=== PATIENT | male | born 1945 | race Caucasian/White ===

== ENCOUNTER 2019-08-26 07:22 | Emergency (ER) | payer MEDICARE, OTHER ==
[2019-08-26 07:44] VITALS: BP 154/91; PULSE 73; RESP 18; TEMP 98.2
[2019-08-26] MEDS ORDERED: SODIUM CHLORIDE 0.9% 1,000 ML IV STA (08:05)
[2019-08-26] MEDS ORDERED: MORPHINE SULFATE 4 MG/ML SYRINGE IV STA (08:11)
--- NOTE | 2019-08-26 08:14 | ED ---
General Adult HPI - General Chief complaint: Skin/Abscess/Foreign Body Stated complaint: Red/swollen finger Time Seen by Provider: 08/26/19 07:46 Source: patient, RN notes reviewed Mode of arrival: ambulatory Limitations: no limitations - History of Present Illness Initial comments: Patient is a pleasant 74-year-old male presenting to the emergency Department with complaints of right finger pain. He should states many years ago he was diagnosed with gout of his finger. Patient states the past couple of days finger has become more red and painful and swollen. Patient states discomfort increases with touch and movement. No fevers. Symptoms have progressively worsened and her saying to become severe. No other area affected. - Related Data Home Medications Medication Instructions Recorded Confirmed Acarbose [Precose] 100 mg PO TID 05/21/14 07/16/14 Atenolol [Tenormin] 50 mg PO QAM 05/21/14 07/16/14 Benazepril HCl 20 mg PO QAM 05/21/14 07/16/14 Furosemide [Lasix] 40 mg PO QAM 05/21/14 07/16/14 Glimepiride [Amaryl] 8 mg PO QAM 05/21/14 07/16/14 Nitroglycerin Sl Tabs [Nitrostat] 0 mg SUBLINGUAL DIRECTED PRN 05/21/14 07/16/14 Pioglitazone HCl [Actos] 45 mg PO QAM 05/21/14 07/16/14 Pravastatin Sodium [Pravachol] 40 mg PO QAM 05/21/14 07/16/14 Ranitidine HCl [Zantac] 150 mg PO QAM 05/21/14 07/16/14 metFORMIN HCL 1,000 mg PO BID 05/21/14 07/16/14 Previous Rx's Medication Instructions Recorded Hydrocodone/Acetaminophen [[place]line 1 each PO Q4HR PRN #30 tab 07/17/14 7.5-325] Cephalexin [Keflex] 500 mg PO QID #40 cap 08/26/19 Indomethacin [Indocin] 50 mg PO TID PRN #20 capsule 08/26/19 Allergies Allergy/AdvReac Type Severity Reaction Status Date / Time No Known Allergies Allergy Verified 08/26/19 07:42 Review of Systems ROS Statement: Those systems with pertinent positive or pertinent negative responses have been documented in the HPI. ROS Other: All systems not noted in ROS Statement are negative. Constitutional: Denies: fever Eyes: Denies: eye pain ENT: Denies: ear pain Respiratory: Denies: cough Cardiovascular: Denies: chest pain Endocrine: Denies: fatigue Gastrointestinal: Denies: abdominal pain Genitourinary: Denies: dysuria Musculoskeletal: Reports: arthralgia. Denies: back pain Skin: Reports: rash Neurological: Denies: weakness Past Medical History Past Medical History: Chest Pain / Angina, Diabetes Mellitus, Hyperlipidemia, Hypertension, Rheumatoid Arthritis (RA) Additional Past Medical History / Comment(s): KIDNEY STONES, History of Any Multi-Drug Resistant Organisms: None Reported Past Surgical History: Heart Catheterization With Stent Past Anesthesia/Blood Transfusion Reactions: No Reported Reaction, Motion Sickness Additional Past Anesthesia/Blood Transfusion Reaction / Comment(s): NEVER HAD A GENERAL ANESTHESIA Date of Last Stent Placement:: 2000 Past Psychological History: Depression Smoking Status: Former smoker Past Alcohol Use History: None Reported Past Drug Use History: None Reported - Past Family History Mother Family Medical History: Cancer Additional Family Medical History / Comment(s): BREAST General Exam Limitations: no limitations General appearance: alert, in no apparent distress Head exam: Present: normocephalic Eye exam: Present: normal appearance Respiratory exam: Present: normal lung sounds bilaterally Cardiovascular Exam: Present: regular rate, normal rhythm Extremities exam: Present: other (Right middle finger on the dorsum DIP with severe swelling and moderate erythema extending almost to the PIP. There is tenderness. Minimal white/clear drainage. Trace swelling on the volar aspect. Decreased range of motion secondary to swelling.) Neurological exam: Present: alert Psychiatric exam: Present: normal affect, normal mood Skin exam: Present: erythema Course Vital Signs 08/26/19 07:42 Temperature 98.2 F Pulse Rate 73 Respiratory 18 Rate Blood Pressure 154/91 O2 Sat by Pulse 96 Oximetry - Reevaluation(s) Reevaluation #1: 08/26/19 08:[address] Christianson Medical Decision Making - Medical Decision Making Case was discussed in detail with Dr. Christianson who did also review pictures. He recommends outpatient oral antibiotics and follow-up with Dr. Elliott as well as primary care physician. Patient updated. - Radiology Data Radiology results: image reviewed (X-ray of the right third finger shows tophi focus third DIP consistent with history of gout.) Disposition Clinical Impression: Tophaceous gout, Cellulitis Disposition: HOME SELF-CARE Condition: Stable Instructions (If sedation given, give patient instructions): Gout (ED), Cellulitis (ED) Additional Instructions: Please follow-up with primary care physician as well as Dr. Elliott in the next couple days for recheck. Return for fevers, increased redness or redness streaking up the finger and her arm, increased pain or swelling, worsening symptoms or other concerns. Restrictions sent to [facility] pharmacy. Prescriptions: Indomethacin [Indocin] 50 mg PO TID PRN #20 capsule PRN Reason: Pain Cephalexin [Keflex] 500 mg PO QID #40 cap Is patient prescribed a controlled substance at d/c from ED?: No Referrals: Fidencio Merlos MD [Primary Care Provider] - 1-2 days Xiang Mg DO [Medical Doctor] - 1-2 days Time of Disposition: 08:40
[2019-08-26] MEDS ORDERED: KETOROLAC 60 MG/2 ML VIAL IM STA (08:32)
--- NOTE | 2019-08-26 08:35 | XR ---
EXAMINATION TYPE: XR finger RT DATE OF EXAM: 08/26/2019 COMPARISON: NONE HISTORY: Pain and swelling for 3 days. History of gout. TECHNIQUE: 3 views right third finger. FINDINGS: There are soft tissue calcifications centered at the third DIP joint. There is moderate tom rowing at this level. No acute fracture or dislocation is seen. Overall moderate soft tissue swelling noted. IMPRESSION: Tophi focus third DIP joint consistent with patient history of gout.
== END 2019-08-26 08:47 | disposition home or self-care (01) ==
LOC: EC 07:22
DX: L03.011 Cellulitis of right finger (principal); M1A.0411 Idiopathic chronic gout, right hand, with tophus (tophi); E11.9 Type 2 diabetes mellitus without complications; E78.5 Hyperlipidemia, unspecified; I10 Essential (primary) hypertension; Z79.84 Long term (current) use of oral hypoglycemic drugs; Z79.899 Other long term (current) drug therapy; Z87.891 Personal history of nicotine dependence; Z95.5 Presence of coronary angioplasty implant and graft
CPT/HCPCS: 87070; 87205; 73140; 99283; 96372; J1885

== ENCOUNTER 2019-09-06 13:05 | Day surgery (SDC) | payer MEDICARE, OTHER ==
[2019-09-05 08:21] VITALS: BMI 37.5
[~2019-09-06 13:05] MED LIST: DEXAMETHASONE SOD PHOSPHATE 10 MG/ML 1 ML VIAL IV ONE; HYDROmorphone 0.5 MG/0.5 ML SYRINGE IVP PRN; LACTATED RINGERS 1,000 ML IV SCH; MIDAZOLAM 2 MG/2 ML VIAL IV PRN; ONDANSETRON 4 MG/2 ML VIAL IVP ONE
[2019-09-06 14:39] VITALS: TEMP 97.6
[2019-09-06 14:39] LABS: Glucose,Whole Blood 142 mg/dL (75-99)
[2019-09-06] MEDS ORDERED: PROPOFOL 10 MG/ML 20 ML VIAL IV ONE (15:58)
[2019-09-06] MEDS ORDERED: fentaNYL (PF) 50 MCG/ML 2 ML AMP ONE (15:58)
[2019-09-06] MEDS ORDERED: LIDOCAINE 1% INJ 10MG/ML (20 ML MDV) ONE (15:58)
[2019-09-06] MEDS ORDERED: KETAMINE 10 MG/ML 20 ML VIAL ONE (15:58)
[2019-09-06] MEDS ORDERED: GLYCOPYRROLATE 0.2 MG/ML 2 ML VIAL ONE (15:58)
[2019-09-06] MEDS ORDERED: MIDAZOLAM 2 MG/2 ML VIAL ONE (15:58)
[2019-09-06] MEDS ORDERED: LIDOCAINE 1% INJ 10MG/ML (20 ML MDV) SQ ONE (16:19)
[2019-09-06] MEDS ORDERED: ROPIVACAINE 5 MG/ML 30 ML VIAL MISCELLANE ONE (16:19)
[2019-09-06 17:57] VITALS: BP 148/69; PULSE 65; RESP 16
--- NOTE | 2019-09-11 15:11 | P.OP ---
Date of Procedure: 09/06/19 Preoperative Diagnosis: 1. 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 High-grade partial attritional rupture (~80%) of the right middle finger terminal extensor tendon (Zone 1 extensor tendon rupture) Procedure(s) Performed: 1. Incision and drainage of right middle finger with excision of gouty tophus and primary wound closure 2. Irrigation and debridement of right middle finger DIP joint 3. Debridement of right middle finger extensor tendon rupture Anesthesia: MAC, local Surgeon: Xiang Mg Estimated Blood Loss (ml): 10 Pathology: other (Culture swab of DIP joint) Condition: stable Disposition: PACU Indications for Procedure: The patient is a pleasant 74-year-old male who presented with acute tophaceous gout of his right middle finger with draining open wounds. Initial treatment with oral antibiotics, NSAIDs and local wound care did not yield substantial improvement. Treatment options (and associated risks and benefits) were discussed in the office. Surgical treatment was recommended. In preop, the patient denied any additional questions or concerns and wished to proceed with surgery. Consent forms were signed. The operative site was confirmed and marked. Description of Procedure: The patient was positioned supine with the operative limb on a hand table. Anesthesia was administered uneventfully. With aseptic technique, a digital block was performed using local anesthetic without epinephrine. The right upper extremity was prepped and draped in standard, sterile fashion. A time-out was performed, confirming patient identifiers, the operative side, the site and the procedure to be performed: all team members expressed agreement. A strip of the Esmarch was cut and clamped at the base of the finger as a digital tourniquet. A longitudinal incision was made over the dorsal aspect of the DIP joint, incorporating one of the open wounds. Abundant thick, tophaceous material was immediately encountered and was manually expressed from the wound. The subcutaneous tissues were bluntly spread and the wound was explored. Extensive tophaceous deposits were identified throughout the dorsal soft tissues, along the extensor tendon and down the lateral recesses. The terminal extensor tendon was found to be nearly completely disrupted. There was substantial loss of the central substance of the tendon, with only small portions of the peripheral insertions still intact. A combination of sharp and mechanical debridement was employed to resect the tophaceous material, utilizing scalpels, curettes and rongeurs. There were numerous pockets scattered throughout the dorsum of the finger. The ulcerated open wounds were carefully debrided. The skin was quite friable. The extensor tendon was cleaned of gouty exudate. The frayed edges were sharply revised and the remaining tendon was mechanically debrided. There was insufficient tissue to perform a primary repair. Though small, the remaining peripheral attachments seemed fairly strong. The dorsal capsule was absent. The DIP joint was explored: both articular surfaces were nearly completely devoid of cartilage. A culture swab of the joint space was obtained. Additional tophaceous tissue was removed from the norma int. Tophi were also found impacted into the dorsal surface of the proximal phalanx head/neck and were removed with curettes and a dental pick. An 18-gauge angiocatheter was used to copiously irrigate the joint with normal saline. The rest of the dorsal wound was thoroughly irrigated with a bulb syringe. The digital tourniquet was released after 41 minutes. Hemostasis was obtained with manual pressure. The incision was loosely closed with interrupted 5-0 Prolene sutures. The small, peripheral open wounds were also closed primarily with simple sutures. A soft, sterile dressing of Adaptic, 4 x 4's, Daisy and Cobstephanie was applied. All sponge, needle and instrument counts were correct at the end of the case. The patient tolerated the procedure well and was taken to recovery in stable condition.
== END 2019-09-06 18:10 | disposition home or self-care (01) ==
LOC: OR 13:05
PROVIDERS: ATTEND Orthopaedic Surgery
DX: M1A.0411 Idiopathic chronic gout, right hand, with tophus (tophi) (principal); M11.841 Other specified crystal arthropathies, right hand; M66.241 Spontaneous rupture of extensor tendons, right hand; M19.041 Primary osteoarthritis, right hand; S61.202A Unspecified open wound of right middle finger without damage to nail, initial encounter; I11.9 Hypertensive heart disease without heart failure; E78.5 Hyperlipidemia, unspecified; E03.9 Hypothyroidism, unspecified; E11.9 Type 2 diabetes mellitus without complications; I25.10 Atherosclerotic heart disease of native coronary artery without angina pectoris; K21.9 Gastro-esophageal reflux disease without esophagitis; Z79.899 Other long term (current) drug therapy; Z79.84 Long term (current) use of oral hypoglycemic drugs; Z97.3 Presence of spectacles and contact lenses; Z87.2 Personal history of diseases of the skin and subcutaneous tissue; Z98.890 Other specified postprocedural states; Z87.442 Personal history of urinary calculi; Z87.891 Personal history of nicotine dependence; Z97.2 Presence of dental prosthetic device (complete) (partial); Z95.5 Presence of coronary angioplasty implant and graft; X58.XXXA Exposure to other specified factors, initial encounter
CPT/HCPCS: 26080; 87070; 87205; 87075; 87102; J2250; J1100; J0690; J2405; J2001; J3010; J2795; J2704

== ENCOUNTER → 2020-07-31 | Outpatient (CLI) | payer MEDICARE, OTHER ==
--- NOTE | 2020-07-31 10:31 | FL ---
EXAMINATION TYPE: FL barium swallow DATE OF EXAM: 07/31/2020 CLINICAL HISTORY: Dysphagia. Pills getting stuck in upper esophagus. TECHNIQUE: A double contrast esophagram is performed utilizing air and barium. A total of 0.23 janae chloe of fluoroscopic time was utilized during procedure and 60 images obtained COMPARISON: CT abdomen September 22, 2015 FINDINGS: The esophagus shows occasional abnormal secondary tertiary contraction but fairly satisfact ory emptying into the stomach. No evidence of fixed hiatal hernia or stricture noted. No abnormal ou tpouching or diverticulum. No significant gastroesophageal reflux was seen during real time performan ce of this study. IMPRESSION: No significant abnormality is seen to account for patient's symptoms.
== END | disposition home or self-care (01) ==
LOC: RADUSWWP 09:30
PROVIDERS: ATTEND Family Medicine
DX: R13.10 Dysphagia, unspecified (principal)
CPT/HCPCS: 74220

== ENCOUNTER 2020-09-24 07:05 | Day surgery (SDC) | payer MEDICARE, OTHER ==
[2020-09-22 15:19] VITALS: BMI 37.2
[~2020-09-24 07:05] MED LIST changes: -DEXAMETHASONE SOD PHOSPHATE 10 MG/ML 1 ML VIAL IV ONE; -HYDROmorphone 0.5 MG/0.5 ML SYRINGE IVP PRN; +LIDOCAINE 1% (10MG/ML) FOR IV START INTRADERMA PRN; -MIDAZOLAM 2 MG/2 ML VIAL IV PRN; -ONDANSETRON 4 MG/2 ML VIAL IVP ONE
[2020-09-24 07:42] VITALS: RESP 16; TEMP 98
[2020-09-24 08:01] LABS: Glucose,Whole Blood 209 mg/dL (75-99)
[2020-09-24] MEDS ORDERED: PROPOFOL 10 MG/ML 20 ML VIAL IV ONE (08:21)
[2020-09-24] MEDS ORDERED: LIDOCAINE 1% INJ 10MG/ML (20 ML MDV) ONE (08:21)
--- NOTE | 2020-09-24 08:41 | P.PCN ---
Date of Procedure: 09/24/20 Description of Procedure: BRIEF HISTORY: Patient is a 75-year-old male presenting for outpatient EGD for evaluation of dysphagia. Patient has two-year history of esophageal dysphagia and choking. He reports that the symptoms have been worse. Previously on ranitidine for GERD currently is only taking as needed [id number] medication. PROCEDURE PERFORMED: Esophagogastroduodenoscopy with biopsy. PREOPERATIVE DIAGNOSIS: Dysphagia, esophageal dysphagia, history of reflux. ESTIMATED BLOOD LOSS: Minimal. IV sedation per anesthesia. PROCEDURE: After informed consent was obtained, the patient was brought into the endoscopy unit. IV sedation was administered by Anesthesia under continuous monitoring. Initially the Olympus GIF-190 video endoscope was inserted into the mouth. Esophagus intubated without any difficulty. It was gradually advanced into the stomach and duodenum and carefully examined. The bulb and the second part of the duodenum appeared normal, except for some mild punctate erythema suggestive of mild duodenitis with biopsies taken. The scope at this time was withdrawn to the stomach, adequately insufflated with air, and upon careful examination, mucosa of the antrum, body, cardia and the fundus appeared normal, except for some mild scattered erythema in the antrum and body suggestive of mild gastritis with biopsies of the antrum and body taken. The scope was then withdrawn into the esophagus. The GE junction was located at 41 cm from the incisors and biopsied. The esophagus appeared normal, with no esophageal biopsies taken to rule out EOE. There were no erosions or ulcerations seen and the patient tolerated the procedure well. IMPRESSION: 1. Mild gastritis. 2. Mild duodenitis. 3. Biopsies of the duodenum, antrum and body, GE junction and mid esophagus. RECOMMENDATIONS: The findings of this examination were discussed with the patient . Okay to resume diet. Okay to resume medication. Await pathology from biopsies. Patient can start a trial of OTC Prilosec for a few weeks to see if this improves dysphagia given history of reflux, otherwise no gross abnormalities of the esophagus noted.
[2020-09-24 08:55] LABS: Glucose,Whole Blood 178 mg/dL (75-99)
[2020-09-24 09:10] VITALS: BP 156/81; PULSE 63
== END 2020-09-24 09:20 | disposition home or self-care (01) ==
LOC: ORWHC2ENDO 07:05
PROVIDERS: ATTEND Internal Medicine
DX: K29.50 Unspecified chronic gastritis without bleeding (principal); K29.80 Duodenitis without bleeding; K21.00 Gastro-esophageal reflux disease with esophagitis, without bleeding; E11.9 Type 2 diabetes mellitus without complications; I25.10 Atherosclerotic heart disease of native coronary artery without angina pectoris; I10 Essential (primary) hypertension; E78.5 Hyperlipidemia, unspecified; J44.9 Chronic obstructive pulmonary disease, unspecified; M06.9 Rheumatoid arthritis, unspecified; F32.9 Major depressive disorder, single episode, unspecified; Z79.899 Other long term (current) drug therapy; Z87.891 Personal history of nicotine dependence; Z79.84 Long term (current) use of oral hypoglycemic drugs; Z95.5 Presence of coronary angioplasty implant and graft; Z97.2 Presence of dental prosthetic device (complete) (partial); Z98.890 Other specified postprocedural states; Z87.442 Personal history of urinary calculi; Z87.898 Personal history of other specified conditions
CPT/HCPCS: 88305; 88312; 43239; J2001; J2704

== ENCOUNTER → 2022-05-16 | Outpatient (CLI) | payer MEDICARE ==
[2022-05-16 12:27] LABS: Magnesium 1.9 mg/dL (1.5-2.4)
[2022-05-16 12:31] LABS: African American GFR (CKD) 53.8 (60.0-200.0); Anion Gap 12.2 mmol/L (10.00-18.00); BUN/Creat Ratio 8.08 Ratio (12.00-20.00); Blood Urea Nitrogen 11.8 mg/dL (9.0-27.0); Calcium 9.2 mg/dL (8.7-10.3); Carbon Dioxide 26.8 mmol/L (20.0-27.5); Non-African American GFR(CKD) 46.4 (60.0-200.0); Potassium 4.5 mmol/L (3.5-5.5)
== END | disposition home or self-care (01) ==
LOC: LABWHC1 07:50
PROVIDERS: ATTEND Internal Medicine
DX: Z00.00 Encounter for general adult medical examination without abnormal findings (principal); I25.10 Atherosclerotic heart disease of native coronary artery without angina pectoris; E78.2 Mixed hyperlipidemia
CPT/HCPCS: 36415; 80048; 83735

== ENCOUNTER 2022-08-12 09:03 | Day surgery (SDC) | payer MEDICARE ==
[2022-08-11 08:28] VITALS: BMI 32.7
[2022-08-12 09:44] VITALS: TEMP 97.1
[2022-08-12 09:49] LABS: Glucose,Whole Blood 189 mg/dL (70-110)
[2022-08-12] MEDS: LACTATED RINGERS 1,000 ML IV SCH ×2 (09:49→10:13)
[2022-08-12] MEDS ORDERED: LIDOCAINE 2% INJ 20 MG/ML (2 ML VIAL) ONE (10:14)
[2022-08-12] MEDS ORDERED: PROPOFOL 10 MG/ML 20 ML VIAL IV ONE (10:14)
--- NOTE | 2022-08-12 10:37 | P.PCN ---
Date of Procedure: 08/12/22 Procedure(s) Performed: BRIEF HISTORY: Patient is a 77-year-old pleasant white male scheduled for an elective colonoscopy as a part of evaluation of chronic diarrhea of 2 months duration. PROCEDURE PERFORMED: Colonoscopywith biopsy. PREOPERATIVE DIAGNOSIS: chronic diarrhea of 2 months duration. IV sedation per Anesthesia. PROCEDURE: After informed consent was obtained, the patient, was brought into the endoscopy unit. IV sedation was administered by Anesthesia under continuous monitoring. Digital rectal examination was normal. Initially the Olympus CF-160 flexible video colonoscope was then inserted in the rectum, gradually advanced into the cecum without any difficulty. Careful examination was performed as the scope was gradually being withdrawn. Ileocecal valve and the appendiceal orifice were visualized and appeared normal. Prep was excellent. Mucosa of the cecum, ascending colon 5 years.appeared normal. In the transverse colon there was a 3 mm polyp that was removed by cold biopsy. In the sigmoid colon there was another 3 mm polyp that was removed by cold biopsy. Rest of the, transverse colon, descending colon, sigmoid colon, and rectum appeared normal. random biopsies were done from the ascending and descending colon to rule out microscopic colitis.use scattered diverticulosis seen. Retroflexion was performed in the rectum and no lesions were seen. The patient tolerated the procedure well. IMPRESSION: 3 mm transverse colon polyp status post cold biopsy 3 mm sigmoid colon polyp status post cold biopsy Diffuse diverticulosis throughout the entire colon RECOMMENDATIONS: Findings of this examination were discussed with the patient as well as his family. He was advised to follow with the biopsy results. If the biopsy reveals adenoma he can have a repeat colonoscopy in 3 years.
[2022-08-12 11:07] VITALS: BP 136/77; PULSE 67; RESP 15
== END 2022-08-12 11:41 | disposition home or self-care (01) ==
LOC: ORWHC2ENDO 09:03
PROVIDERS: ATTEND Internal Medicine Gastroenterology
DX: K52.9 Noninfective gastroenteritis and colitis, unspecified (principal); D12.3 Benign neoplasm of transverse colon; D12.4 Benign neoplasm of descending colon; D12.5 Benign neoplasm of sigmoid colon
CPT/HCPCS: 88305; 45380; J2704; J2001

== ENCOUNTER 2025-02-04 18:46 | Observation (INO) | payer MEDICARE ==
[2025-02-04 19:13] LABS: Basophils # (A) 0.06 10*3/uL (0.00-0.10); Basophils % (A) 0.6 %; Eosinophils # (A) 0.07 10*3/uL (0.04-0.35); Eosinophils % (A) 0.7 %; HCT 35.1 % (39.6-50.0); HGB 12.3 g/dL (13.0-17.0); Lymphocytes # (A) 2.82 10*3/uL (0.90-5.00); Lymphocytes % (A) 26.2 %; MCH 30.9 pg (27.0-32.0); MCV 88.2 fL (80.0-97.0); Mean Platelet Volume 11.3 fL (9.5-12.2); Monocytes # (A) 1.44 10*3/uL (0.20-1.00); Monocytes % (A) 13.4 %; Neutrophils # (A) 5.97 10*3/uL (1.80-7.70); Neutrophils % (A) 55.5 %; Platelet Count 100 10*3/uL (140-440); RBC 3.98 10*6/uL (4.40-5.60); RDW 13.4 % (11.5-14.5); WBC 10.75 10*3/uL (4.50-10.00)
[2025-02-04 19:20] LABS: Partial Thromboplastin Time 22.9 sec (22.0-30.0); Prothrombin Time 11.1 sec (10.0-12.5)
[2025-02-04 19:24] LABS: ALT 16 U/L (4-49); AST 19 U/L (17-59); African American GFR (CKD) 51 (>60 ml/min/1.73 sqM); Albumin 4.6 g/dL (3.5-5.0); Alkaline Phosphatase 51 U/L (38-126); Anion Gap 14 mmol/L; Blood Urea Nitrogen 30 mg/dL (9-20); Calcium 9.8 mg/dL (8.4-10.2); Carbon Dioxide 23 mmol/L (22-30); Chloride 95 mmol/L (98-107); Glucose 375 mg/dL (74-99); Non-African American GFR(CKD) 44 (>60 ml/min/1.73 sqM); Potassium 4.1 mmol/L (3.5-5.1); Sodium 132 mmol/L (137-145); Total Bilirubin 1.1 mg/dL (0.2-1.3); Total Protein 7.7 g/dL (6.3-8.2)
--- NOTE | 2025-02-04 19:24 | ED ---
General Adult HPI - General Chief complaint: Syncope Stated complaint: syncope Time Seen by Provider: 02/04/25 18:48 Source: patient, EMS, RN notes reviewed, old records reviewed Mode of arrival: EMS Limitations: no limitations - History of Present Illness Initial comments: 79-year-old male presents from home after likely syncopal episode. Patient was at the dinner table he became unresponsive and slumped over. Family member lowered him to the ground. There was no injury or fall. Patient regained consciousness. At the time my evaluation he has no specific complaints other than some mild nausea. Patient was transported by paramedics, given 500 cc of normal saline. He does have a history of CAD and CHF and takes 80 mg of Lasix daily. No recent medication changes. No fever. No chest pain. No abdominal pain nausea vomiting or diarrhea. - Related Data Home Medications Medication Instructions Recorded Confirmed Benazepril HCl 20 mg PO DAILY 05/21/14 10/12/22 Furosemide [Lasix] 80 mg PO DAILY 05/21/14 10/12/22 Glimepiride [Amaryl] 4 mg PO BID 05/21/14 10/12/22 Nitroglycerin Sl Tabs [Nitrostat] 0.4 mg SUBLINGUAL Q5M PRN 05/21/14 10/12/22 Pravastatin Sodium [Pravachol] 40 mg PO DAILY 05/21/14 10/12/22 atenoloL [Tenormin] 50 mg PO DAILY 05/21/14 10/12/22 Acarbose [Precose] 100 mg PO TID 09/22/20 10/12/22 Aspirin EC [Ecotrin] 325 mg PO DAILY 05/07/22 10/12/22 Cholecalciferol [Vitamin D3 (25 25 mcg PO DAILY 05/07/22 10/12/22 Mcg = 1000 Iu)] amLODIPine [Norvasc] 5 mg PO DAILY 05/07/22 10/12/22 Previous Rx's Medication Instructions Recorded Magnesium Oxide [Mag-Ox] 400 mg PO BID 30 Days #60 tab 05/12/22 Allergies Allergy/AdvReac Type Severity Reaction Status Date / Time No Known Allergies Allergy Verified 10/12/22 09:07 Review of Systems ROS Statement: Those systems with pertinent positive or pertinent negative responses have been documented in the HPI. ROS Other: All systems not noted in ROS Statement are negative. Past Medical History Past Medical History: Chest Pain / Angina, Diabetes Mellitus, GERD/Reflux, Hyperlipidemia, Hypertension, Rheumatoid Arthritis (RA) Additional Past Medical History / Comment(s): KIDNEY STONES, gout, RECENT INPT STAY 04/2021 FOR COLITIS History of Any Multi-Drug Resistant Organisms: None Reported Past Surgical History: Heart Catheterization With Stent Additional Past Surgical History / Comment(s): tumor removed from stomach as . KIDNEY STONE REMOVED Past Anesthesia/Blood Transfusion Reactions: Motion Sickness Additional Past Anesthesia/Blood Transfusion Reaction / Comment(s): NEVER HAD A GENERAL ANESTHESIA Date of Last Stent Placement:: 2000 Past Psychological History: No Psychological Hx Reported Smoking Status: Former smoker Past Alcohol Use History: None Reported Past Drug Use History: None Reported - Past Family History Mother Family Medical History: Cancer Additional Family Medical History / Comment(s): BREAST General Exam Limitations: no limitations General appearance: alert, in no apparent distress Head exam: Present: atraumatic, normocephalic Eye exam: Present: normal appearance, PERRL ENT exam: Present: normal exam Neck exam: Present: normal inspection. Absent: tenderness, meningismus Respiratory exam: Present: normal lung sounds bilaterally. Absent: respiratory distress, wheezes Cardiovascular Exam: Present: regular rate, normal rhythm GI/Abdominal exam: Present: soft. Absent: distended, tenderness Extremities exam: Present: pedal edema (trace) Neurological exam: Present: alert, oriented X3, CN II-XII intact. Absent: motor sensory deficit Psychiatric exam: Present: normal affect, normal mood Skin exam: Present: warm, dry, intact Course Vital Signs 02/04/25 18:51 Temperature 98.0 F Pulse Rate 62 Respiratory 16 Rate Blood Pressure 142/95 O2 Sat by Pulse 95 Oximetry Medical Decision Making - Medical Decision Making Was pt. sent in by a medical professional or institution (, PA, FINANCIAL SALES MANAGER, urgent care, hospital, or senior care...) When possible be specific @ -No Did you speak to anyone other than the patient for history (EMS, parent, family, police, friend...)? What history was obtained from this source @ -No Did you review nursing and triage notes (agree or disagree)? Why? @ -I reviewed and agree with nursing and triage notes Were old charts reviewed (outside hosp., previous admission, EMS record, old EKG, old radiological studies, urgent care reports/EKG's, senior care records)? Report findings @ -No old charts were reviewed Differential Syncope: Valvular disease, hypertrophic cardiomyopathy, pulmonary embolism, tamponade, tachycardia, bradycardia, OK, hypovolemia, hemorrhage, dissection, anemia, intracranial hemorrhage, seizure, hypoglycemia, carbon monoxide poisoning, this is not meant to be an all-inclusive list. EKG interpreted by me (3pts min.). @EKG: Bradycardia wide-complex history of left bundle on previous EKG, rate of 58, MO interval 188, QRS duration 169, QTc [address] segment elevation. X-rays interpreted by me (1pt min.). @Chest x-ray negative for pneumothorax, no consolidative pneumonia CT interpreted by me (1pt min.). @ -None done U/S interpreted by me (1pt. min.). @ -None done What testing was considered but not performed or refused? (CT, X-rays, U/S, labs)? Why? @ -None What meds were considered but not given or refused? Why? @ -None Did you discuss the management of the patient with other professionals (professionals i.e. , PA, FINANCIAL SALES MANAGER, lab, RT, psych nurse, psych social worker, mobile phone salesperson, teacher, loan officer, mental health case manager)? Give summary @ -Dr. Merlos has been paged for admission Was smoking cessation discussed for >3mins.? @ -No Was critical care preformed (if so, how long)? @ -No Were there social determinants of health that impacted care today? How? (Homelessness, low income, unemployed, alcoholism, drug addiction, t ransportation, low edu. Level, literacy, decrease access to med. care, fdc, rehab)? @ -No Was there de-escalation of care discussed even if they declined (Discuss DNR or withdrawal of care, Hospice)? DNR status @ -No What co-morbidities impacted this encounter? (DM, HTN, Smoking, COPD, CAD, Cance r, CVA, ARF, Chemo, Hep., AIDS, mental health diagnosis, sleep apnea, morbid obesity)? @ -[Coronary artery disease Was patient admitted / discharged? Hospital course, mention meds given and route, prescriptions, significant lab abnormalities, going to OR and other pertinent info. @ -79-year-old male with syncopal episode at home. Patient has a stable blood pressure upon arrival. He does appear to be in a sinus bradycardia with left bundle branch block, history of left bundle branch block. No chest pain. Patient has mild leukocytosis, stable hemoglobin, chronic stable kidney disease. Negative troponin. Patient will be observed on telemetry, echo has been ordered for syncopal episode. Cardiology will be placed on consult for evaluation. Undiagnosed new problem with uncertain prognosis? @ -[No Drug Therapy requiring intensive monitoring for toxicity (Heparin, Nitro, Insulin, Cardizem)? @ -No Were any procedures done? @ -No Diagnosis/symptom? @Syncope Acute, or Chronic, or Acute on Chronic? @Acute Uncomplicated (without systemic symptoms) or Complicated (systemic symptoms)? @ -Default Side effects of treatment? @ -No Exacerbation, Progression, or Severe Exacerbation? @ -No Poses a threat to life or bodily function? How? (Chest pain, USA, OK, pneumonia, PE, COPD, DKA, ARF, appy, cholecystitis, CVA, Diverticulitis, Homicidal, Suicidal, threat to staff... and all critical care pts) @ -Yes, arrhythmia, ACS, hypovolemia - Lab Data Result diagrams: 02/04/25 19:00 02/04/25 19:00 Lab Results 02/04/25 02/04/25 02/04/25 Range/Units 19:00 19:00 19:00 WBC 10.75 H (4.50-10.00) 10*3/uL RBC 3.98 L (4.40-5.60) 10*6/uL Hgb 12.3 L (13.0-17.0) g/dL Hct 35.1 L (39.6-50.0) % MCV 88.2 (80.0-97.0) fL MCH 30.9 (27.0-32.0) pg MCHC 35.0 (32.0-37.0) g/dL Plt Count 100 L (140-440) 10*3/uL MPV 11.3 (9.5-12.2) fL Immature Gran % (Auto) 3.6 % Neutrophils % 55.5 % Lymphocytes % 26.2 % Monocytes % 13.4 % Eosinophils % 0.7 % Basophils % 0.6 % Immature Gran # 0.39 H (0.00-0.04) 10*3/uL Neutrophils # 5.97 (1.80-7.70) 10*3/uL Lymphocytes # 2.82 (0.90-5.00) 10*3/uL Monocytes # 1.44 H (0.20-1.00) 10*3/uL Eosinophils # 0.07 (0.04-0.35) 10*3/uL Basophils # 0.06 (0.00-0.10) 10*3/uL Immature Plt Fraction 8.0 H (1.1-6.1) % PT 11.1 (10.0-12.5) sec INR 1.0 (<1.2) APTT 22.9 (22.0-30.0) sec Sodium 132 L (137-145) mmol/L Potassium 4.1 (3.5-5.1) mmol/L Chloride 95 L (98-107) mmol/L Carbon Dioxide 23 (22-30) mmol/L Anion Gap 14 mmol/L BUN 30 H (9-20) mg/dL Creatinine 1.51 H (0.66-1.25) mg/dL Est GFR (CKD-EPI)AfAm 51 (>60 ml/min/1.73 sqM) Est GFR (CKD-EPI)NonAf 44 (>60 ml/min/1.73 sqM) Glucose 375 H (74-99) mg/dL Calcium 9.8 (8.4-10.2) mg/dL Total Bilirubin 1.1 (0.2-1.3) mg/dL AST 19 (17-59) U/L ALT 16 (4-49) U/L Alkaline Phosphatase 51 (38-126) U/L Troponin I (0.000-0.034) ng/mL Total Protein 7.7 (6.3-8.2) g/dL Albumin 4.6 (3.5-5.0) g/dL 02/04/25 Range/Units 19:00 WBC (4.50-10.00) 10*3/uL RBC (4.40-5.60) 10*6/uL Hgb (13.0-17.0) g/dL Hct (39.6-50.0) % MCV (80.0-97.0) fL MCH (27.0-32.0) pg MCHC (32.0-37.0) g/dL Plt Count (140-440) 10*3/uL MPV (9.5-12.2) fL Immature Gran % (Auto) % Neutrophils % % Lymphocytes % % Monocytes % % Eosinophils % % Basophils % % Immature Gran # (0.00-0.04) 10*3/uL Neutrophils # (1.80-7.70) 10*3/uL Lymphocytes # (0.90-5.00) 10*3/uL Monocytes # (0.20-1.00) 10*3/uL Eosinophils # (0.04-0.35) 10*3/uL Basophils # (0.00-0.10) 10*3/uL Immature Plt Fraction (1.1-6.1) % PT (10.0-12.5) sec INR (<1.2) APTT (22.0-30.0) sec Sodium (137-145) mmol/L Potassium (3.5-5.1) mmol/L Chloride (98-107) mmol/L Carbon Dioxide (22-30) mmol/L Anion Gap mmol/L BUN (9-20) mg/dL Creatinine (0.66-1.25) mg/dL Est GFR (CKD-EPI)AfAm (>60 ml/min/1.73 sqM) Est GFR (CKD-EPI)NonAf (>60 ml/min/1.73 sqM) Glucose (74-99) mg/dL Calcium (8.4-10.2) mg/dL Total Bilirubin (0.2-1.3) mg/dL AST (17-59) U/L ALT (4-49) U/L Alkaline Phosphatase (38-126) U/L Troponin I <0.012 (0.000-0.034) ng/mL Total Protein (6.3-8.2) g/dL Albumin (3.5-5.0) g/dL Disposition Clinical Impression: Syncope Disposition: ADMITTED IP TO THIS HOSP Condition: Stable Is patient prescribed a controlled substance at d/c from ED?: No Referrals: Fidencio Merlos MD [Primary Care Provider] - 1-2 days Time of Disposition: 19:54
[2025-02-04] MEDS ORDERED: ACETAMINOPHEN TAB 325 MG TAB PO PRN (19:49)
[2025-02-04] MEDS ORDERED: NALOXONE 0.4 MG/ML 1 ML VIAL IV PRN (19:49)
--- NOTE | 2025-02-04 20:04 | XR ---
EXAMINATION TYPE: XR chest 2V DATE OF EXAM: 02/04/2025 7:28 PM COMPARISON: 10/12/2022 CLINICAL INDICATION: Male, 79 years old with history of syncope, TECHNIQUE: XR chest 2V view(s) obtained. FINDINGS: The heart size is normal. The pulmonary vasculature is normal. The lungs are clear. IMPRESSION: 1. No acute pulmonary process. [facility], , 02/04/2025 8:01 PM
[2025-02-04 20:35] LABS: Glucose,Whole Blood 385 mg/dL (70-110)
[2025-02-04] MEDS: INSULIN REGULAR 100 UNIT/ML VIAL (IV) IV ONE (20:35)
[2025-02-04] MEDS: SODIUM CHLORIDE 0.9% 1,000 ML IV SCH (20:45)
[2025-02-05 00:11] LABS: Glucose,Whole Blood 362 mg/dL (70-110)
--- NOTE | 2025-02-05 12:49 | P.CRDCN ---
History of Present Illness Consult date: 02/05/25 Requesting physician: Fidencio Merlos Reason for Consult (text): syncope Chief complaint: syncope History of present illness: This is a pleasant 79-year-old gentleman patient last seen in our office in [address] Root. He has past medical history of IN with stenting in [address] Vergara, hypertension, hyperlipidemia, and diabetes. Presented to the hospital with complaints of syncope. He was sitting at his computer and suddenly slumped over and became unresponsive. This was witnessed by granddaughter who said he was out for about 2 minutes. Patient denies any seizure-like activity. He denies any loss of bladder control. He had no symptoms prior to the event and has had no similar symptoms prior to this. Denies any episodes of chest discomfort. His breathing is stable. Diagnostics -EKG: Sinus rhythm with a left bundle branch block similar to 2022 -Chest x-ray: No acute pulmonary process -Laboratory studies: White blood cell count 10.75, hemoglobin 12.3, sodium 132, BUN 30, creatinine 1.51, troponin less than 0.012 -Home cardiac medications: Atenolol 50 mg p.o. daily, amlodipine 5 mg p.o. daily, pravastatin 40 mg p.o. daily, Lasix 40 mg p.o. twice daily, aspirin 325 mg p.o. daily, and benazepril 20 mg p.o. daily -Prior stress test: Not available -Echocardiogram: None available -Cardiac catheterization: None available Review Of Systems: At the time of my exam: CONSTITUTIONAL: Denies fever or chills. HEENT: Denies blurred vision, vision changes. CARDIOVASCULAR: Denies chest pain. Denies orthopnea. Denies PND. Denies palpitations, dizziness, or syncope. RESPIRATORY: Mild stable shortness of breath. No wheezing or cough. Denies hemoptysis. GASTROINTESTINAL: Denies abdominal pain. Denies nausea or vomiting. Denies bleeding. HEMATOLOGIC: Denies bleeding disorders. GENITOURINARY: Denies hematuria. SKIN: Denies puritis. Denies rash. PHYSICAL EXAMINATION: This is a 79-year-old male in no apparent distress at the time of my examination. VITAL SIGNS: Reviewed. HEENT: Head is atraumatic, normocephalic. Pupils are equal, round. Sclerae anicteric. Conjunctivae are clear. Mucous membranes of the mouth are moist. Neck is supple. There is no elevated jugular venous pressure. No carotid bruit is heard. CHEST EXAMINATION: Lungs reveal diminished air entry bilaterally. No wheezes rales or rhonchi. Respirations even and nonlabored. HEART EXAMINATION: Heart regular, positive S1 and S2. No S3. No S4. Systolic murmur. ABDOMEN: Soft, nontender. Bowel sounds are heard. No organomegaly noted. EXTREMITIES: 1+ peripheral pulses with evidence of peripheral edema. no calf tenderness noted. NEUROLOGIC EXAMINATION: Patient is awake, alert and oriented x3. Assessment: 1. Syncope 2. CAD with prior IN and stent in 2000 3. Left bundle branch block, seen on EKG in 2022 4. Hypertension 5. Hyperlipidemia 6. Diabetes Plan: Cardiology's perspective obtain a 2D echo with Doppler study to assess cardiac structure and function. Depending on results further recommendations will be made. Patient will need a 2-week event monitor on discharge. Thank you kindly for this consultation. Nurse practitioner note has been reviewed, I agree with documented findings and plan of care. Patient was seen and examined. 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 KIDNEY STONE REMOVED Past Anesthesia/Blood Transfusion Reactions: Motion Sickness Additional Past Anesthesia/Blood Transfusion Reaction / Comment(s): NEVER HAD A GENERAL ANESTHESIA Date of Last Stent Placement:: 2000 Past Psychological History: No Psychological Hx Reported Smoking Status: Former smoker Past Alcohol Use History: None Reported Additional Past Alcohol Use History / Comment(s): QUIT SMOKING 2000,started smoking at age 15 Past Drug Use History: None Reported - Past Family History Mother Family Medical History: Cancer Additional Family Medical History / Comment(s): BREAST Medications and Allergies Home Medications Medication Instructions Recorded Confirmed Type Benazepril HCl 20 mg PO DAILY 05/21/14 02/05/25 History Furosemide [Lasix] 40 mg PO BID 05/21/14 02/05/25 History Glimepiride [Amaryl] 4 mg PO BID 05/21/14 02/05/25 History Nitroglycerin Sl Tabs [Nitrostat] 0.4 mg SUBLINGUAL Q5M PRN 05/21/14 02/05/25 History Pravastatin Sodium [Pravachol] 40 mg PO DAILY 05/21/14 02/05/25 History atenoloL [Tenormin] 50 mg PO DAILY 05/21/14 02/05/25 History Acarbose [Precose] 100 mg PO TID 09/22/20 02/05/25 History Aspirin EC [Ecotrin] 325 mg PO DAILY 05/07/22 02/05/25 History amLODIPine [Norvasc] 5 mg PO DAILY 05/07/22 02/05/25 History Allergies Allergy/AdvReac Type Severity Reaction Status Date / Time No Known Allergies Allergy Verified 02/05/25 10:22 Physical Exam Vitals: Vital Signs Temp Pulse Pulse Resp BP BP Pulse Ox 02/05/25 07:05 97.8 F 70 16 119/73 97 02/05/25 00:28 97.4 F L 58 L 17 132/78 99 02/04/25 23:00 98.4 F 65 18 152/88 97 02/04/25 22:00 62 18 128/80 98 02/04/25 18:51 98.0 F 62 16 142/95 95 Intake and Output 02/04/25 02/05/25 02/05/25 22:59 06:59 14:59 Other: Voiding Method Toilet Toilet # Voids 2 Weight 104.372 kg Results 02/04/25 19:00 02/04/25 19:00 Cardiac Enzymes 02/04/25 02/04/25 Range/Units 19:00 19:00 AST 19 (17-59) U/L Troponin I <0.012 (0.000-0.034) ng/mL Coagulation 02/04/25 Range/Units 19:00 PT 11.1 (10.0-12.5) sec APTT 22.9 (22.0-30.0) sec CBC 02/04/25 Range/Units 19:00 WBC 10.75 H (4.50-10.00) 10*3/uL RBC 3.98 L (4.40-5.60) 10*6/uL Hgb 12.3 L (13.0-17.0) g/dL Hct 35.1 L (39.6-50.0) % Plt Count 100 L (140-440) 10*3/uL Comprehensive Metabolic Panel 02/04/25 Range/Units 19:00 Sodium 132 L (137-145) mmol/L Potassium 4.1 (3.5-5.1) mmol/L Chloride 95 L (98-107) mmol/L Carbon Dioxide 23 (22-30) mmol/L BUN 30 H (9-20) mg/dL Creatinine 1.51 H (0.66-1.25) mg/dL Glucose 375 H (74-99) mg/dL Calcium 9.8 (8.4-10.2) mg/dL AST 19 (17-59) U/L ALT 16 (4-49) U/L Alkaline Phosphatase 51 (38-126) U/L Total Protein 7.7 (6.3-8.2) g/dL Albumin 4.6 (3.5-5.0) g/dL Current Medications Generic Name Dose Route Start Last Admin Trade Name Freq PRN Reason Stop Dose Admin Acetaminophen 650 mg 02/04/25 19:49 Acetaminophen Tab 325 Mg Tab PO Q6HR PRN Mild Pain or Fever > 100.5 Amlodipine Besylate 5 mg 02/06/25 09:00 Amlodipine 5 Mg Tab PO DAILY [facility] Aspirin 325 mg 02/06/25 09:00 Aspirin 325 Mg Tab PO DAILY [facility] Atenolol 50 mg 02/06/25 09:00 Atenolol 50 Mg Tab PO DAILY [facility] Furosemide 40 mg 02/05/25 21:00 Furosemide 40 Mg Tab PO BID [facility] Sodium Chloride 1,000 mls @ 50 mls/hr 02/04/25 20:00 02/04/25 20:45 Saline 0.9% IV 50 mls/hr .Q20H STEFANIE Administration Lisinopril 20 mg 02/06/25 09:00 Lisinopril 20 Mg Tab PO DAILY STEFANIE Naloxone HCl 0.2 mg 02/04/25 19:49 Naloxone 0.4 Mg/Ml 1 Ml Vial IV Q2M PRN Opioid Reversal Pravastatin Sodium 40 mg 02/06/25 09:00 Pravastatin Sodium 40 Mg Tab PO DAILY [facility] Intake and Output 02/04/25 02/05/25 02/05/25 22:59 06:59 14:59 Other: Voiding Method Toilet Toilet # Voids 2 Weight 104.372 kg 02/04/25 19:00 02/04/25 19:00
--- NOTE | 2025-02-05 13:22 | CT ---
EXAMINATION TYPE: CT angio head neck DATE OF EXAM: 02/05/2025 COMPARISON: None CLINICAL INDICATION: Male, 79 years old with history of syncope; PHH, SYNCOPE TECHNIQUE: CTA scan of the head and neck is performed with IV Contrast, patient injected with 65 mL of Isovue 370, axial images are obtained, coronal and sagittal reformatted images are reviewed. 3D re constructed images are created on an independent workstation and reviewed. CT DLP: 1518.[address] CTDI: mGy Automated exposure control for dose reduction was used. NASCET criteria was used in interpretation of this exam? FINDINGS: The brachiocephalic origins are widely patent and no significant stenosis. There is a moderate calcified plaque in the distal right common carotid artery resulting in a mild st enosis. There is a weblike stenosis of the proximal right internal carotid artery just distal to its origin resulting in a 50% stenosis. There is mild calcified plaque of the left carotid bifurcation but there is no significant stenosis o n the left. Vertebral arteries are widely patent. The right vertebral artery is mildly dominant. Intracranially, there is no stenosis, segmental occlusion, sizable aneurysm sac or vascular malformat ion. IMPRESSION:. 1. 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 2. no significant stenosis of the left common or internal carotid artery. 3. No occlusive disease intracranially. NASCET criteria was used in interpretation of this exam? [facility], Workstation: CAROL 02/05/2025 1:20 PM
[2025-02-05 18:14] LABS: Glucose,Whole Blood 327 mg/dL (70-110)
--- NOTE | 2025-02-05 18:51 | CA ---
Transthoracic Echo Report Name: Christofer Quintanilla Age: 79 Gender: M : 1945 Exam Date: 02/05/2025 15:03 Exam Location: [place] [facility] Ht (in): 70 Wt (lb): 230 Ordering Physician: Fidencio Merlos MD Attending/Referring Phys: Chelita LYONS [employer] Liaison Officer Leeanna Head, [id number] Procedure CPT: Indications: CP Cardiac Hx: Technical Quality: Fair Contrast 1: Definity Total Dose (mL): 2 Contrast 2: Total Dose (mL): MEASUREMENTS (Male / Female) Normal Values 2D ECHO LV Diastolic Diameter PLAX 4.2 cm 4.2 - 5.9 / 3.9 - 5.3 cm LV Systolic Diameter PLAX 3.0 cm IVS Diastolic Thickness 1.4 cm 0.6 - 1.0 / 0.6 - 0.9 cm LVPW Diastolic Thickness 1.3 cm 0.6 - 1.0 / 0.6 - 0.9 cm LV Relative Wall Thickness 0.6 RV Internal Dim ED PLAX 2.3 cm LA Systolic Diameter LX 4.1 cm 3.0 - 4.0 / 2.7 - 3.8 cm M-MODE Aortic Root Diameter MM 2.9 cm LA Systolic Diameter MM 4.1 cm LA Ao Ratio MM 1.4 AV Cusp Separation MM 1.8 cm DOPPLER AV Peak Velocity 172.4 cm/s AV Peak Gradient 11.9 mmHg AI Peak Velocity 219.0 cm/s AI Peak Gradient 19.2 mmHg AI Pressure Half Time 1001.2 ms MV Area PHT 2.2 cm??? Mitral E Point Velocity 62.0 cm/s Mitral A Point Velocity 80.3 cm/s Mitral E to A Ratio 0.8 MV Deceleration Time 348.5 ms TR Peak Velocity 218.8 cm/s TR Peak Gradient 19.2 mmHg FINDINGS Left Ventricle Left ventricular ejection fraction is estimated at 50-55 %. Left ventricular systolic function borderline normal.left ventricular cavity size normal. Mildly increased left ventricular wall thickness. Right Ventricle Normal right ventricular size and function. Right ventricular systolic pressure within normal limits. Right Atrium Mild right atrial dilatation. Left Atrium Mildly increased left atrial area. Mitral Valve Structurally normal mitral valve. Mild mitral regurgitation. No mitral stenosis. Aortic Valve Trileaflet aortic valve. Thickened aortic valve without stenosis. Trace to mild aortic regurgitation. Tricuspid Valve Structurally normal tricuspid valve. mild tricuspid regurgitation. No tricuspid stenosis. Pulmonic Valve Trace pulmonic regurgitation. No pulmonic stenosis.pulmonic valve not well visualized. Pericardium No pericardial or pleural effusion. Aorta Normal size aortic root and proximal ascending aorta. CONCLUSIONS Technically difficult study. Definity ECHO contrast used for improved visualization of the endocardial borders (inadequate visualization of two or more contiguous segments). Left ventricular systolic function borderline normal Mild mitral and tricuspid regurgitation Trace to mild aortic regurgitation Previewed by: Dr. Edmar Cao MD (Electronically Signed) Final Date: 05 February 2025 18:51
[2025-02-05 20:00] LABS: Glucose,Whole Blood 373 mg/dL (70-110)
[2025-02-05] MEDS: INSULIN LISPRO (HumaLOG) 100 UNIT/ML 10 mL VL SQ SCH (20:29)
[2025-02-05] MEDS: FUROSEMIDE 40 MG TAB PO SCH (20:30)
--- NOTE | 2025-02-05 23:05 | HP ---
HISTORY AND PHYSICAL CHIEF COMPLAINT: Syncope. HISTORY OF PRESENT ILLNESS: This is an another admission for this 79-year-old white male. He has a long-standing history of coronary artery disease, ASCVD, hypertension and uncontrolled diabetes. His blood sugars have been up for years and he refuses to take insulin. He apparently was sitting with a granddaughter eating when he suddenly passed out. She witnessed the whole thing. He had no seizure activity or incontinence. He had no aura or any warning including headache, chest pain, palpitations, etc. When he woke up, he had no focal neurologic deficits. His legs just felt weak. He had no headache, chest pain, etc. REVIEW OF SYSTEMS: Otherwise unremarkable. Past medical history, family history personal and social histories are significant as already mentioned. He has he does have coronary artery disease and had an infarction many years ago. ALLERGIES: He is not allergic to any medication. MEDICATIONS: He takes: 1. Glimepiride 4 mg twice a day. 2. Amlodipine 5 mg once a day. 3. Furosemide 40 mg once a day. 4. Atenolol 50 mg once a day. 5. Benazepril 20 mg once a day. 6. Acarbose 100 mg 3 times a day. 7. Pravastatin 40 mg once a day. 8. Febuxostat 40 mg once a day. 9. Vitamin D. 10.Aspirin. 11.Nitrostat. SOCIAL HISTORY: He does not any longer smoke. PHYSICAL EXAMINATION: VITAL SIGNS: Blood pressure is 142/95 with a pulse of 84 and regular. He is afebrile. HEAD, EARS, EYES, NOSE, MOUTH AND THROAT: Normal. NECK: Neck veins are not distended. Thyroid is enlarged. CHEST: Clear. CARDIAC: Normal sinus rhythm and no murmurs or extra sounds. ABDOMEN: Protuberant, soft and nontender. EXTREMITIES: Normal. NEUROLOGICAL: He was intact. Cranial nerves were intact from II to XII. Sensory and motor exam was normal. DIAGNOSES: He was admitted to the hospital with diagnoses of: 1. Syncope. 2. History of coronary artery disease. 3. History of hypertension. 4. Uncontrolled diabetes mellitus. 5. Gout. PLAN: 1. Bed rest. 2. IV fluids. 3. Telemetry. 4. Consult with Cardiology and Neurology. 5. CTA of the head and neck. 6. Echocardiogram. MMODL / IJN: [id number] /
--- NOTE | 2025-02-05 23:08 | EEG ---
ELECTROENCEPHALOGRAM REPORT PREAMBLE: This is a 79-year-old male with syncopal spell. CURRENT MEDICATIONS: 1. Norvasc. 2. Aspirin. 3. Tenormin. 4. Lasix. 5. Zestril. 6. Pravachol. EEG FINDINGS: This is a 21-channel digital EEG recorded with video component, utilizing 10/20 international system with referential and bipolar montages. Background consists of well developed, well regulated, low amplitude activity in 8 to 9 hertz alpha. Background is posterior dominant and reactive to eye opening and closing. Photic driving response was not seen. Drowsiness was seen with appearance of bilaterally symmetric theta frequency rhythm. Deeper stages of sleep were not seen. No focal or generalized epileptiform activity was seen. EKG channel showed no obvious arrhythmia. IMPRESSION: This is a normal awake and drowsy EEG. No focal, lateralized or epileptiform activity was seen. MMODL / IJN: [id number] /
--- NOTE | 2025-02-06 03:11 | PN ---
PROGRESS NOTE CHIEF COMPLAINT: Syncope. HISTORY OF PRESENT ILLNESS: This gentleman is doing well and feeling fine. He has had no chest pain. Studies so far have been normal. He is being seen by Cardiology. PHYSICAL EXAMINATION: VITAL SIGNS: Blood pressure 142/95. CHEST: Clear. CARDIAC: Normal sinus rhythm. ABDOMEN: Soft and protuberant. EXTREMITIES: Normal. IMPRESSION: 1. Syncope. 2. History of coronary artery disease. 3. History of hypertension. 4. History of uncontrolled diabetes. PLAN: Continue to monitor blood sugars. It is 375 today. MMODL / IJN: [id number] /
[2025-02-06 06:03] LABS: Glucose,Whole Blood 203 mg/dL (70-110)
[2025-02-06 07:59] VITALS: BP 113/68; PULSE 58; RESP 16; TEMP 97.6
[2025-02-06] MEDS ORDERED: atenoloL 50 MG TAB PO SCH (09:00)
[2025-02-06] MEDS ORDERED: ASPIRIN 325 MG TAB PO SCH (09:00)
[2025-02-06] MEDS: lisinopriL 20 MG TAB PO SCH (09:04)
[2025-02-06] MEDS: PRAVASTATIN SODIUM 40 MG TAB PO SCH (09:04)
[2025-02-06] MEDS: amLODIPine 5 MG TAB PO SCH (09:04)
[2025-02-06] MEDS: ASPIRIN 81 MG PO SCH (09:05)
[2025-02-06] MEDS: atenoloL 25 MG TAB PO SCH (09:19)
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
--- NOTE | 2025-02-06 12:33 | P.PN ---
Subjective Progress Note Date: 02/06/25 Requesting physician: Fidencio Merlos Reason for Consult (text): Syncope Chief complaint: syncope History of present illness: This is a pleasant 79-year-old gentleman patient last seen in our office in [address] Root. He has past medical history of CA with stenting in [address] Vergara, hypertension, hyperlipidemia, and diabetes. Presented to the hospital with complaints of syncope. He was sitting at his computer and suddenly slumped over and became unresponsive. This was witnessed by granddaughter who said he was out for about 2 minutes. Patient denies any seizure-like activity. He denies any loss of bladder control. He had no symptoms prior to the event and has had no similar symptoms prior to this. Denies any episodes of chest discomfort. His breathing is stable. Diagnostics -EKG: Sinus rhythm with a left bundle branch block similar to 2022 -Chest x-ray: No acute pulmonary process -Laboratory studies: White blood cell count 10.75, hemoglobin 12.3, sodium 132, BUN 30, creatinine 1.51, troponin less than 0.012 -Home cardiac medications: Atenolol 50 mg p.o. daily, amlodipine 5 mg p.o. daily, pravastatin 40 mg p.o. daily, Lasix 40 mg p.o. twice daily, aspirin 325 m g p.o. daily, and benazepril 20 mg p.o. daily -Prior stress test: Not available -Echocardiogram: None available -Cardiac catheterization: None available 02/06/2025 Patient seen and examined. Patient denies chest pain, chest pressure no shortness of breath, no lightheadedness or dizziness, no syncopal episodes. Blood pressure 113/68, heart rate 58, pulse ox 98% on room air. Echocardiogram reveals a technically difficult study. EF 50 to 55%. Mild mitral and tricuspid regurgitation. Trace to mild aortic regurgitation. PHYSICAL EXAMINATION: This is a 79-year-old male in no apparent distress at the time of my examination. VITAL SIGNS: Reviewed. HEENT: Head is atraumatic, normocephalic. Pupils are equal, round. Sclerae anicteric. Conjunctivae are clear. Mucous membranes of the mouth are moist. Neck is supple. There is no elevated jugular venous pressure. No carotid bruit is heard. CHEST EXAMINATION: Lungs reveal diminished air entry bilaterally. No wheezes rales or rhonchi. Respirations even and nonlabored. HEART EXAMINATION: Heart regular, positive S1 and S2. No S3. No S4. Systolic murmur. ABDOMEN: Soft, nontender. Bowel sounds are heard. No organomegaly noted. EXTREMITIES: 1+ peripheral pulses with evidence of peripheral edema. no calf tenderness noted. NEUROLOGIC EXAMINATION: Patient is awake, alert and oriented x3. Assessment: 1. Syncope 2. CAD with prior CA and stent in 2000 3. Left bundle branch block, seen on EKG in 2022 4. Hypertension 5. Hyperlipidemia 6. Diabetes Plan: Patient will be provided a 2-week event monitor on discharge. Patient is cleared for discharge from cardiology and will follow-up in the office in 3 weeks. Nurse practitioner note has been reviewed, I agree with documented findings and plan of care. Patient was seen and examined. Objective - Vital Signs Vital signs: Vital Signs Temp 97.6 F 02/06/25 07:59 Pulse 58 L 02/06/25 07:59 Resp 16 02/06/25 07:59 BP 113/68 02/06/25 07:59 Pulse Ox 98 02/06/25 07:59 FiO2 Intake & Output 02/05/25 02/06/25 02/06/25 18:59 06:59 18:59 Intake Total 222 Balance 222 Intake: Oral 222 Other: Voiding Method Toilet Toilet # Voids 3 3 - Labs CBC & Chem 7: 02/04/25 19:00 02/04/25 19:00 Labs: Abnormal Lab Results - Last 24 Hours (Table) 02/04/25 02/05/25 02/05/25 Range/Units 19:00 18:12 19:51 POC Glucose (mg/dL) 327 H 373 H (70-110) mg/dL Hemoglobin A1c 10.3 H (<=6.0) % 02/06/25 Range/Units 06:00 POC Glucose (mg/dL) 203 H (70-110) mg/dL Hemoglobin A1c (<=6.0) %
--- NOTE | 2025-02-06 17:11 | DS ---
DISCHARGE SUMMARY CHIEF COMPLAINT: Syncope. HISTORY OF PRESENT ILLNESS AND PHYSICAL EXAMINATION: Details of this man's history and physical can be found in the initial workup. LABORATORY STUDIES: While he was in the hospital, he had laboratory studies, details of which can be found in the laboratory section of his chart. COURSE IN THE HOSPITAL: After admission, he was placed on bedrest, started intravenous fluids and serial EKGs and enzymes and frequent monitoring of his neurologic status and vital signs. Seen by Cardiology. He was taken for cardiac cath where he was found to have 50% narrowing in the RCA. He was seen by Neurology. Balance of his studies came up perfectly normal. It was felt that he could be discharged to outpatient followup and he will follow up in my office as well as with Cardiology. FINAL DIAGNOSES: 1. Syncopal episode, etiology unknown. 2. History of essential hypertension. 3. History of coronary artery disease. 4. Gout. 5. History of uncontrolled diabetes. OPERATIONS: None. CONSULTATION: Neurology and Cardiology. MMODL / AYANAN: [id number] /
== END 2025-02-06 11:55 | disposition home or self-care (01) ==
LOC: EC 18:46 → 6NMEDSUR 19:50
PROVIDERS: ADMIT Family Medicine; ATTEND Family Medicine
DX: R55 Syncope and collapse (principal); E11.65 Type 2 diabetes mellitus with hyperglycemia; E78.5 Hyperlipidemia, unspecified; I11.0 Hypertensive heart disease with heart failure; I50.9 Heart failure, unspecified; I25.10 Atherosclerotic heart disease of native coronary artery without angina pectoris; I25.2 Old myocardial infarction; I44.7 Left bundle-branch block, unspecified; M06.9 Rheumatoid arthritis, unspecified; M10.9 Gout, unspecified; Z79.82 Long term (current) use of aspirin; Z79.84 Long term (current) use of oral hypoglycemic drugs; Z79.899 Other long term (current) drug therapy; Z87.442 Personal history of urinary calculi; Z87.891 Personal history of nicotine dependence; Z95.5 Presence of coronary angioplasty implant and graft
CPT/HCPCS: 99285; 36415; 95816; 93005; 93306; 80053; 84484; 85025; 85610; 85730; 83036; 71046; 70496; 70498; G0378 ×3; Q9967